=== PATIENT | male | born 1950 | race Two or more races ===

== ENCOUNTER 2024-11-20 05:40 | Day surgery (SDC) | payer OTHER ==
[2024-11-14 12:59] VITALS: BP 135/80
[~2024-11-20] VITALS: Ht 170.2 cm; Wt 81.6 kg
[~2024-11-20 05:40] MED LIST: CRESTOR40 MG; JARDIANCE10 MG PO; NORVASC2.5 M1; TAMS0.4C PO; ZETIA10 MG PO
[2024-11-20] MEDS ORDERED: BUPIVACAINE HCL 30 ML VIAL IJ ONE (07:15)
[2024-11-20] MEDS ORDERED: LIDOCAINE HCL 1%/EPINEPHRINE 20ML VIAL IJ ONE (07:15)
[2024-11-20] MEDS ORDERED: levoFLOXacin IN DEXTROSE 5 % 5 MG/ML PIGGYBAG IV ONE (07:15)
[2024-11-20] MEDS ORDERED: METRONIDAZOLE/SODIUM CHLORIDE 500 MG/100 ML PIGGYBACK IV ONE (07:15)
== END 2024-11-20 10:55 | disposition home or self-care (01) ==
LOC: CIR.AMB 05:40
PROVIDERS: ATTEND Colon & Rectal Surgery
DX: R15.9 Full incontinence of feces (principal); R32 Unspecified urinary incontinence; Z88.0 Allergy status to penicillin
CPT/HCPCS: 64581; 95971; C1778

== ENCOUNTER 2024-12-04 05:30 | Day surgery (SDC) | payer OTHER ==
[2024-12-04] MEDS ORDERED: METRONIDAZOLE/SODIUM CHLORIDE 500 MG/100 ML PIGGYBACK IV ONE ×2 (07:19→07:30)
[2024-12-04] MEDS ORDERED: LIDOCAINE HCL 1%/EPINEPHRINE 20ML VIAL IJ ONE (07:30)
[2024-12-04] MEDS ORDERED: BUPIVACAINE HCL 30 ML VIAL IJ ONE (07:30)
[2024-12-04] MEDS ORDERED: levoFLOXacin IN DEXTROSE 5 % 5 MG/ML PIGGYBAG IV ONE (07:30)
== END 2024-12-04 10:50 | disposition home or self-care (01) ==
LOC: CIR.AMB 05:30
PROVIDERS: ATTEND Colon & Rectal Surgery
DX: R15.9 Full incontinence of feces (principal); R32 Unspecified urinary incontinence; Z88.0 Allergy status to penicillin
CPT/HCPCS: 64590; 95971; C1767